=== PATIENT | female | born 1940 | race Caucasian/White ===

== ENCOUNTER 2022-09-28 16:44 | Emergency (ER) | payer OTHER, MEDICARE ==
--- OUTSIDE RECORDS SUMMARY | 2022-09-28 16:48 | XMS REPORT | Continuity of Care Document ---
:1940 Author Organization [facility] t Address [address] [place] [address] Care Team Providers Name Role Phone Tequila Pierre Primary Care Physician [phone] CRISTY CUELLO Attending Clinician Unavailable Pob, [facility] Main Attending Clinician Unavailable Doctor Unassigned, [place] Attending Clinician Unavailable Neelam Velarde Attending Clinician Unavailable Lissa Oakley Attending Clinician Radiology Attending Clinician Unavailable CRISTY CUELLO Admitting Clinician Unavailable Neelam Velarde Admitting Clinician Unavailable Payers Payer Name Policy Type Policy Number Effective Date Expiration Date S cecilia MEDICARE PART A \T\ [id number] 2007 B 00:00:00 [facility] [id number] 2015 MEDICARE SUPPLEMENT 00:00:00 Problems Condition Condition Condition Status Onset Resolution Last Treating Co mments Source Name Details Category Date Date Treatment Clinician Date Dyslipidem Dyslipidem Disease Active U nivers ia ia 2-09 ity of 00:00: [place] [address] Medical Branch Atypical Atypical Disease Active Unive rs chest pain chest pain 2-08 it y of 00:00: [place] 00 [facility] [place] Allergies, Adverse Reactions, Alerts Allergy Allergy Status Severity Reaction(s) Onset Inactive Treating Comm ents Source Name Type Date Date Clinician ran RODRIGUEZ Active U UNKNOWN 2015- [facility] 12-27 [place] [facility] NO KNOWN Drug Active Univers ALLERGIE Class ity of S [facility] Social History Social Habit Start Date Stop Date Quantity Comments Source History of Current smoker University of tobacco use [place] [facility] History SDOH University o f Alcohol Frequency [place] [facility] History SDOH University o f Alcohol Std [place] [facility] Drinks Branch History SDOH University o f Alcohol Binge [place] [facility] Exposure to 2022-08-19 2022-08-29 Not sure University of SARS-CoV-2 00:00:00 16:15:00 [place] [facility] (event) Branch Alcohol intake 2022-08-17 2022-08-17 Current University of 00:00:00 00:00:00 non-drinker of [facility] alcohol (finding) Branch Tobacco use and 2022-05-18 2022-05-18 Smokeless tobacco Un iversity of exposure 00:00:00 00:00:00 non-user [facility] Alcohol Comment 2018-10-17 2018-10-17 social drinker Unive rsity of 00:00:00 00:00:00 [facility] Sex Ass[birth year] Universit y of 00:00:00 00:00:00 [facility] Smoking Status Start Date Stop Date Source Ex-smoker 2022-05-18 00:00:00 2022-05-18 00:00:00 Universi ty of [facility] Medications Ordered Filled Start Stop Current Ordering Indication Dosage Frequency Signature Comments Components Source Medication Medication Date Date Medication? Clinician (SIG) Name Name Nitrofurant 2021-09- Yes [id number] 100mg Take 1 Univers oin&Nit. 1-23 11-29 capsule by ity of [place] 00:00: 05:59 mouth [place] (MACROBID[place] 00 :00 the Medical 100 mg morning Branch capsule and 1 capsule in the evening. Do all this for 5 days. Nitrofurant 2021-09- No [id number] 100mg Take 1 Univers oin&Nit. 0-07 10-13 capsule by ity of [place] 00:00: 04:59 [place] (MACROBID[place] 00 :00 the Medical 100 mg morning Branch capsule and 1 capsule in the evening. Do all this for 5 days. Nitrofurant 2021-09- No [id number] 100mg Take 1 Univers oin&Nit. 0-07 10-13 capsule by ity of [place] 00:00: 04:59 mouth [place] (MACROBID[place] 00 :00 the Medical 100 mg morning Branch capsule and 1 capsule in the evening. Do all this for 5 days. phenazopyri 0 Yes [id number] 100mg Take 1 Univers dine 5-24 tablet by ity of ([place]ID[place] (two) Medical tablet times Branch daily as needed for Other (bladder spasms/dys uria). phenazopyri 0 Yes [id number] 100mg Take 1 Univers dine 5-24 tablet by ity of (PYRIDIUM) 00:00: [place] 00 (two) Medical tablet times Branch daily as needed for Other (bladder spasms/dys uria). phenazopyri 0 Yes [id number] 100mg Take 1 Univers dine 5-24 tablet by ity of (PYRIDIUM) 00:00: [place] 00 (two) Medical tablet times Branch daily as needed for Other (bladder spasms/dys uria). phenazopyri 2021-0 Yes [id number] 100mg Take 1 Univers dine 5-24 tablet by ity of (PYRIDIUM) 00:00: [place] 00 (two) Medical tablet times Branch daily as needed for Other (bladder spasms/dys uria). phenazopyri 2021-0 Yes [id number] 100mg Take 1 Univers dine 5-24 tablet by ity of (PYRIDIUM) 00:00: mouth [place] 00 (two) Medical tablet times Branch daily as needed for Other (bladder spasms/dys uria). phenazopyri Yes [id number] 100mg Take 1 Univers dine 5-24 tablet by ity of (PYRIDIUM) 00:00: mouth [place] 00 (two) Medical tablet times Branch daily as needed for Other (bladder spasms/dys uria). phenazopyri 0 Yes [id number] 100mg Take 1 Univers dine 5-24 tablet by ity of (PYRIDIUM) 00:00: mouth [place] 00 (two) Medical tablet times Branch daily as needed for Other (bladder spasms/dys uria). phenazopyri 0 Yes [id number] 100mg Take 1 Univers dine 5-24 tablet by ity of (PYRIDIUM) 00:00: mouth [place] 00 (two) Medical tablet times Branch daily as needed for Other (bladder spasms/dys uria). phenazopyri 0 Yes [id number] 100mg Take 1 Univers dine 5-24 tablet by ity of (PYRIDIUM) 00:00: mouth [place] 00 (two) Medical tablet times Branch daily as needed for Other (bladder spasms/dys uria). phenazopyri 0 Yes [id number] 100mg Take 1 Univers dine 5-24 tablet by ity of (PYRIDIUM) 00:00: mouth [place] 00 (two) Medical tablet times Branch daily as needed for Other (bladder spasms/dys uria). phenazopyri 0 Yes [id number] 100mg Take 1 Univers dine 5-24 tablet by ity of (PYRIDIUM) 00:00: mouth [place] 00 (two) Medical tablet times Branch daily as needed for Other (bladder spasms/dys uria). phenazopyri 0 Yes [id number] 100mg Take 1 Univers dine 5-24 tablet by ity of (PYRIDIUM) 00:00: mouth [place] 00 (two) Medical tablet times Branch daily as needed for Other (bladder spasms/dys uria). phenazopyri 0 Yes [id number] 100mg Take 1 Univers dine 5-24 tablet by ity of (PYRIDIUM) 00:00: mouth 2 [place] 00 (two) Medical tablet times Branch daily as needed for Other (bladder spasms/dys uria). phenazopyri 0 Yes [id number] 100mg Take 1 Univers dine 5-24 tablet by ity of (PYRIDIUM) 00:00: mouth [place] 00 (two) Medical tablet times Branch daily as needed for Other (bladder spasms/dys uria). phenazopyri Yes [id number] 100mg Take 1 Univers dine 5-24 tablet by ity of (PYRIDIUM) 00:00: mouth [place] 00 (two) Medical tablet times Branch daily as needed for Other (bladder spasms/dys uria). phenazopyri Yes [id number] 100mg Take 1 Univers dine 5-24 tablet by ity of (PYRIDIUM) 00:00: mouth 2 [place] 00 (two) Medical tablet times Branch daily as needed for Other (bladder spasms/dys uria). phenazopyri Yes [id number] 100mg Take 1 Univers dine 5-24 tablet by ity of (PYRIDIUM) 00:00: mouth 2 [place] mg 00 (two) Medical tablet times Branch daily as needed for Other (bladder spasms/dys uria). phenazopyri Yes [id number] 100mg Take 1 Univers dine 5-24 tablet by ity of (PYRIDIUM) 00:00: mouth 2 [place] mg 00 (two) Medical tablet times Branch daily as needed for Other (bladder spasms/dys uria). phenazopyri Yes [id number] 100mg Take 1 Univers dine 5-24 tablet by ity of (PYRIDIUM) 00:00: mouth 2 [place] 00 (two) Medical tablet times Branch daily as needed for Other (bladder spasms/dys uria). estradioL Yes [id number] Apply 1g Univers (ESTRACE) 5-23 vaginally ity o f 0.01 % (0.1 00:00: at bedtime [place] mg/gram) 00 3 times Medical vaginal per week Branch cream (/) estradioL Yes [id number] Apply 1g Univers (ESTRACE) 5-23 vaginally ity o f 0.01 % (0.1 00:00: at bedtime [place] mg/gram) 00 3 times Medical vaginal per week Branch cream ( ida) estradioL 2021-0 Yes [id number] Apply 1g Univers (ESTRACE) 5-23 vaginally ity o f 0.01 % (0.1 00:00: at bedtime [place] mg/gram) 00 3 times Medical vaginal per week Branch cream ( ida) estradioL 2021-0 Yes [id number] Apply 1g Univers (ESTRACE) 5-23 vaginally ity o f 0.01 % (0.1 00:00: at bedtime [place] mg/gram) 00 3 times Medical vaginal per week Branch cream ( dn iday) estradioL 2021-0 Yes [id number] Apply 1g Univers (ESTRACE) 5-23 vaginally ity o f 0.01 % (0.1 00:00: at bedtime [place] mg/gram) 00 3 times Medical vaginal per week Branch cream ( ida) estradioL 2021-0 Yes [id number] Apply 1g Univers (ESTRACE) 5-23 vaginally ity o f 0.01 % (0.1 00:00: at bedtime [place] mg/gram) 00 3 times Medical vaginal per week Branch cream ( dn ida) estradioL 2021-0 Yes [id number] Apply 1g Univers (ESTRACE) 5-23 vaginally ity o f 0.01 % (0.1 00:00: at bedtime [place] mg/gram) 00 3 times Medical vaginal per week Branch cream ( ida) estradioL 2021-0 Yes [id number] Apply 1g Univers (ESTRACE) 5-23 vaginally ity o f 0.01 % (0.1 00:00: at bedtime [place] mg/gram) 00 3 times Medical vaginal per week Branch cream ( dn iday) estradioL 2021-0 Yes [id number] Apply 1g Univers (ESTRACE) 5-23 vaginally ity o f 0.01 % (0.1 00:00: at bedtime [place] mg/gram) 00 3 times Medical vaginal per week Branch cream ( dn ida) estradioL 2021-0 Yes [id number] Apply 1g Univers (ESTRACE) 5-23 vaginally ity o f 0.01 % (0.1 00:00: at bedtime [place] mg/gram) 00 3 times Medical vaginal per week Branch cream () estradioL Yes [id number] Apply 1g Univers (ESTRACE) 5-23 vaginally ity o f 0.01 % (0.1 00:00: at bedtime [place] mg/gram) 00 3 times Medical vaginal per week Branch cream ( ida) estradioL 0 Yes [id number] Apply 1g Univers (ESTRACE) 5-23 vaginally ity o f 0.01 % (0.1 00:00: at bedtime [place] mg/gram) 00 3 times Medical vaginal per week Branch cream () estradioL Yes [id number] Apply 1g Univers (ESTRACE) 5-23 vaginally ity o f 0.01 % (0.1 00:00: at bedtime [place] mg/gram) 00 3 times Medical vaginal per week Branch cream ( ida) estradioL Yes [id number] Apply 1g Univers (ESTRACE) 5-23 vaginally ity o f 0.01 % (0.1 00:00: at bedtime [place] mg/gram) 00 3 times Medical vaginal per week Branch cream ( ida) estradioL 0 Yes [id number] Apply 1g Univers (ESTRACE) 5-23 vaginally ity o f 0.01 % (0.1 00:00: at bedtime [place] mg/gram) 00 3 times Medical vaginal per week Branch cream ( ida) estradioL 0 Yes [id number] Apply 1g Univers (ESTRACE) 5-23 vaginally ity o f 0.01 % (0.1 00:00: at bedtime [place] mg/gram) 00 3 times Medical vaginal per week Branch cream ( ida) estradioL Yes [id number] Apply 1g Univers (ESTRACE) 5-23 vaginally ity o f 0.01 % (0.1 00:00: at bedtime [place] mg/gram) 00 3 times Medical vaginal per week Branch cream ( dn/ iday) estradioL 2021-0 Yes [id number] Apply 1g Univers (ESTRACE) 5-23 vaginally ity o f 0.01 % (0.1 00:00: at bedtime [place] mg/gram) 00 3 times Medical vaginal per week Branch cream ( dn/ iday) estradioL 2021-0 Yes [id number] Apply 1g Univers (ESTRACE) 5-23 vaginally ity o f 0.01 % (0.1 00:00: at bedtime [place] mg/gram) 00 3 times Medical vaginal per week Branch cream ( dn/ iday) atorvastati Yes 20mg Take 20 mg Univers n 20 mg 4-22 by mouth ity of tablet 13:45: at [place] [address] bedtime. Medical Branch atorvastati Yes 20mg Take 20 mg Univers n 20 mg 4-22 by mouth ity of tablet 13:45: at [place] [address] bedtime. Medical Branch atorvastati 0 Yes 20mg Take 20 mg Univers n 20 mg 4-22 by mouth ity of tablet 13:45: at [place] [address] bedtime. Medical Branch atorvastati 0 Yes 20mg Take 20 mg Univers n 20 mg 4-22 by mouth ity of tablet 13:45: at [place] [address] bedtime. Medical Branch atorvastati Yes 20mg Take 20 mg Univers n 20 mg 4-22 by mouth ity of tablet 13:45: at [place] [address] bedtime. Medical Branch atorvastati 0 Yes 20mg Take 20 mg Univers n 20 mg 4-22 by mouth ity of tablet 13:45: at [place] [address] bedtime. Medical Branch atorvastati 0 Yes 20mg Take 20 mg Univers n 20 mg 4-22 by mouth ity of tablet 13:45: at [place] [address] bedtime. Medical Branch atorvastati 0 Yes 20mg Take 20 mg Univers n 20 mg 4-22 by mouth ity of tablet 13:45: at [place] [address] bedtime. Medical Branch atorvastati 0 Yes 20mg Take 20 mg Univers n 20 mg 4-22 by mouth ity of tablet 13:45: at [place] [address] bedtime. Medical Branch atorvastati 2022-0 Yes 20mg Take 20 mg Univers n 20 mg 4-22 by mouth ity of tablet 13:45: at [place] [address] bedtime. Medical Branch atorvastati 2021-0 Yes 20mg Take 20 mg Univers n 20 mg 4-22 by mouth ity of tablet 13:45: at [place] [address] bedtime. Medical Branch atorvastati 2021-0 Yes 20mg Take 20 mg Univers n 20 mg 4-22 by mouth ity of tablet 13:45: at [place] [address] bedtime. Medical Branch atorvastati 2021-0 Yes 20mg Take 20 mg Univers n 20 mg 4-22 by mouth ity of tablet 13:45: at [place] [address] bedtime. Medical Branch atorvastati 2021-0 Yes 20mg Take 20 mg Univers n 20 mg 4-22 by mouth ity of tablet 13:45: at [place] [address] bedtime. Medical Branch atorvastati 2021-0 Yes 20mg Take 20 mg Univers n 20 mg 4-22 by mouth ity of tablet 13:45: at [place] [address] bedtime. Medical Branch atorvastati 2021-0 Yes 20mg Take 20 mg Univers n 20 mg 4-22 by mouth ity of tablet 13:45: at [place] [address] bedtime. Medical Branch atorvastati 2021-0 Yes 20mg Take 20 mg Univers n 20 mg 4-22 by mouth ity of tablet 13:45: at [place] [address] bedtime. Medical Branch atorvastati 2021-0 Yes 20mg Take 20 mg Univers n 20 mg 4-22 by mouth ity of tablet 13:45: at [place] [address] bedtime. Medical Branch atorvastati 2021-0 Yes 20mg Take 20 mg Univers n 20 mg 4-22 by mouth ity of tablet 13:45: at [place] [address] bedtime. Medical Branch lisinopriL 2021-0 Yes Univers 5 mg tablet 4-13 ity of 00:00: [place] 00 Medical Branch lisinopriL 2021-0 Yes Univers 5 mg tablet 4-13 ity of 00:00: [place] 00 Medical Branch lisinopriL 2021-0 Yes Univers 5 mg tablet 4-13 ity of 00:00: [place] 00 Medical Branch lisinopriL 2021-0 Yes Univers 5 mg tablet 4-13 ity of 00:00: [place] 00 Medical Branch lisinopriL 2022-0 Yes Univers 5 mg tablet 4-13 ity of 00:00: [place] 00 Medical Branch lisinopriL 2021-0 Yes Univers 5 mg tablet 4-13 ity of 00:00: [place] Medical Branch lisinopriL 2021-0 Yes Univers 5 mg tablet 4-13 ity of 00:00: [place] [facility] Branch lisinopriL 202-0 Yes Univers 5 mg tablet 4-13 ity of 00:00: [place] Medical Branch lisinopriL 2021-0 Yes Univers 5 mg tablet 4-13 ity of 00:00: [place] [facility] Branch lisinopriL 2021-0 Yes Univers 5 mg tablet 4-13 ity of 00:00: [place] [facility] Branch lisinopriL 2021-0 Yes Univers 5 mg tablet 4-13 ity of 00:00: [place] [facility] Branch lisinopriL 2021-0 Yes Univers 5 mg tablet 4-13 ity of 00:00: [place] [facility] lisinopriL 2021-0 Yes Univers 5 mg tablet 4-13 ity of 00:00: [place] [facility] Branch lisinopriL 2021-0 Yes Univers 5 mg tablet 4-13 ity of 00:00: [place] [facility] Branch lisinopriL 2021-0 Yes Univers 5 mg tablet 4-13 ity of 00:00: [place] 00 Medical Branch lisinopriL 2021-0 Yes Univers 5 mg tablet 4-13 ity of 00:00: [place] 00 Medical Branch lisinopriL 202-0 Yes Univers 5 mg tablet 4-13 ity of 00:00: [place] Medical Branch lisinopriL 2021-0 Yes Univers 5 mg tablet 4-13 ity of 00:00: [place] 00 Medical Branch lisinopriL 202-0 Yes Univers 5 mg tablet 4-13 ity of 00:00: [place] 00 Medical Branch cefpodoxime 2019-0 Yes [id number] 100mg Take 1 Univers 100 mg 7-28 tablet by ity of tablet 00:00: mouth 2 [place] [address] (two) Medical times Branch daily. ondansetron 2019-0 Yes [id number] 4mg Take 1 Univers (ZOFRAN 7-28 tablet by ity of ODT) 4 mg 00:00: mouth [place] disintegrat 00 every 8 Medic al ing tablet (eight) Branch hours as needed for Nausea and Vomiting (N/V). butalbital- 2020-0 Yes [id number] 1{tbl} Take 1 Univers acetaminoph 7-28 tablet by ity of en-caff 00:00: mouth [place] 50-325-40 00 every 6 Medical mg tablet (six) Branch hours as needed for Pain (scale 4-6). cefpodoxime 2020-0 Yes [id number] 100mg Take 1 Univers 100 mg 7-28 tablet by ity of tablet 00:00: mouth 2 [place] 00 (two) Medical times Branch daily. ondansetron 2020-0 Yes [id number] 4mg Take 1 Univers (ZOFRAN 7-28 tablet by ity of ODT) 4 mg 00:00: mouth [place] disintegrat 00 every 8 Medic al ing tablet (eight) Branch hours as needed for Nausea and Vomiting (N/V). butalbital- 2020-0 Yes [id number] 1{tbl} Take 1 Univers acetaminoph 7-28 tablet by ity of en-caff 00:00: mouth [place] 50-325-40 00 every 6 Medical mg tablet (six) Branch hours as needed for Pain (scale 4-6). cefpodoxime 2020-0 Yes [id number] 100mg Take 1 Univers 100 mg 7-28 tablet by ity of tablet 00:00: mouth 2 [place] 00 (two) Medical times Branch daily. ondansetron 2020-0 Yes [id number] 4mg Take 1 Univers (ZOFRAN 7-28 tablet by ity of ODT) 4 mg 00:00: mouth [place] disintegrat 00 every 8 Medic al ing tablet (eight) Branch hours as needed for Nausea and Vomiting (N/V). butalbital- 2020-0 Yes [id number] 1{tbl} Take 1 Univers acetaminoph 7-28 tablet by ity of en-caff 00:00: mouth [place] 50-325-40 00 every 6 Medical mg tablet (six) Branch hours as needed for Pain (scale 4-6). cefpodoxime 2020-0 Yes [id number] 100mg Take 1 Univers 100 mg 7-28 tablet by ity of tablet 00:00: mouth 2 [place] 00 (two) Medical times Branch daily. ondansetron 2020-0 Yes [id number] 4mg Take 1 Univers (ZOFRAN 7-28 tablet by ity of ODT) 4 mg 00:00: mouth [place] disintegrat 00 every 8 Medic al ing tablet (eight) Branch hours as needed for Nausea and Vomiting (N/V). butalbital- 2020-0 Yes [id number] 1{tbl} Take 1 Univers acetaminoph 7-28 tablet by ity of en-caff 00:00: mouth [place] 50-325-40 00 every 6 Medical mg tablet (six) Branch hours as needed for Pain (scale 4-6). cefpodoxime 2020-0 Yes [id number] 100mg Take 1 Univers 100 mg 7-28 tablet by ity of tablet 00:00: mouth 2 [place] 00 (two) Medical times Branch daily. ondansetron 2020-0 Yes [id number] 4mg Take 1 Univers (ZOFRAN 7-28 tablet by ity of ODT) 4 mg 00:00: mouth [place] disintegrat 00 every 8 Medic al ing tablet (eight) Branch hours as needed for Nausea and Vomiting (N/V). butalbital- 2020-0 Yes [id number] 1{tbl} Take 1 Univers acetaminoph 7-28 tablet by ity of en-caff 00:00: mouth [place] 50-325-40 00 every 6 Medical mg tablet (six) Branch hours as needed for Pain (scale 4-6). cefpodoxime 2020-0 Yes [id number] 100mg Take 1 Univers 100 mg 7-28 tablet by ity of tablet 00:00: mouth 2 [place] 00 (two) Medical times Branch daily. ondansetron 2020-0 Yes [id number] 4mg Take 1 Univers (ZOFRAN 7-28 tablet by ity of ODT) 4 mg 00:00: mouth [place] disintegrat 00 every 8 Medic al ing tablet (eight) Branch hours as needed for Nausea and Vomiting (N/V). butalbital- 2020-0 Yes [id number] 1{tbl} Take 1 Univers acetaminoph 7-28 tablet by ity of en-caff 00:00: mouth [place] 50-325-40 00 every 6 Medical mg tablet (six) Branch hours as needed for Pain (scale 4-6). cefpodoxime 2020-0 Yes [id number] 100mg Take 1 Univers 100 mg 7-28 tablet by ity of tablet 00:00: mouth 2 [place] 00 (two) Medical times Branch daily. ondansetron 2020-0 Yes [id number] 4mg Take 1 Univers (ZOFRAN 7-28 tablet by ity of ODT) 4 mg 00:00: mouth [place] disintegrat 00 every 8 Medic al ing tablet (eight) Branch hours as needed for Nausea and Vomiting (N/V). butalbital- 2020-0 Yes [id number] 1{tbl} Take 1 Univers acetaminoph 7-28 tablet by ity of en-caff 00:00: mouth [place] 50-325-40 00 every 6 Medical mg tablet (six) Branch hours as needed for Pain (scale 4-6). cefpodoxime 2020-0 Yes [id number] 100mg Take 1 Univers 100 mg 7-28 tablet by ity of tablet 00:00: mouth 2 [place] 00 (two) Medical times Branch daily. ondansetron 2020-0 Yes [id number] 4mg Take 1 Univers (ZOFRAN 7-28 tablet by ity of ODT) 4 mg 00:00: mouth [place] disintegrat 00 every 8 Medic al ing tablet (eight) Branch hours as needed for Nausea and Vomiting (N/V). butalbital- 2020-0 Yes [id number] 1{tbl} Take 1 Univers acetaminoph 7-28 tablet by ity of en-caff 00:00: mouth [place] 50-325-40 00 every 6 Medical mg tablet (six) Branch hours as needed for Pain (scale 4-6). cefpodoxime 2020-0 Yes [id number] 100mg Take 1 Univers 100 mg 7-28 tablet by ity of tablet 00:00: mouth 2 [place] 00 (two) Medical times Branch daily. ondansetron 2020-0 Yes [id number] 4mg Take 1 Univers (ZOFRAN 7-28 tablet by ity of ODT) 4 mg 00:00: mouth [place] disintegrat 00 every 8 Medic al ing tablet (eight) Branch hours as needed for Nausea and Vomiting (N/V). butalbital- 2020-0 Yes [id number] 1{tbl} Take 1 Univers acetaminoph 7-28 tablet by ity of en-caff 00:00: mouth [place] 50-325-40 00 every 6 Medical mg tablet (six) Branch hours as needed for Pain (scale 4-6). cefpodoxime 2020-0 Yes [id number] 100mg Take 1 Univers 100 mg 7-28 tablet by ity of tablet 00:00: mouth 2 [place] 00 (two) Medical times Branch daily. ondansetron 2020-0 Yes [id number] 4mg Take 1 Univers (ZOFRAN 7-28 tablet by ity of ODT) 4 mg 00:00: mouth [place] disintegrat 00 every 8 Medic al ing tablet (eight) Branch hours as needed for Nausea and Vomiting (N/V). butalbital- 2020-0 Yes [id number] 1{tbl} Take 1 Univers acetaminoph 7-28 tablet by ity of en-caff 00:00: mouth [place] 50-325-40 00 every 6 Medical mg tablet (six) Branch hours as needed for Pain (scale 4-6). cefpodoxime 2020-0 Yes [id number] 100mg Take 1 Univers 100 mg 7-28 tablet by ity of tablet 00:00: mouth 2 [place] 00 (two) Medical times Branch daily. ondansetron 2020-0 Yes [id number] 4mg Take 1 Univers (ZOFRAN 7-28 tablet by ity of ODT) 4 mg 00:00: mouth [place] disintegrat 00 every 8 Medic al ing tablet (eight) Branch hours as needed for Nausea and Vomiting (N/V). butalbital- 2020-0 Yes [id number] 1{tbl} Take 1 Univers acetaminoph 7-28 tablet by ity of en-caff 00:00: mouth [place] 50-325-40 00 every 6 Medical mg tablet (six) Branch hours as needed for Pain (scale 4-6). cefpodoxime 2020-0 Yes [id number] 100mg Take 1 Univers 100 mg 7-28 tablet by ity of tablet 00:00: mouth 2 [place] 00 (two) Medical times Branch daily. ondansetron 2020-0 Yes [id number] 4mg Take 1 Univers (ZOFRAN 7-28 tablet by ity of ODT) 4 mg 00:00: mouth [place] disintegrat 00 every 8 Medic al ing tablet (eight) Branch hours as needed for Nausea and Vomiting (N/V). butalbital- 2020-0 Yes [id number] 1{tbl} Take 1 Univers acetaminoph 7-28 tablet by ity of en-caff 00:00: mouth [place] 50-325-40 00 every 6 Medical mg tablet (six) Branch hours as needed for Pain (scale 4-6). cefpodoxime 2020-0 Yes [id number] 100mg Take 1 Univers 100 mg 7-28 tablet by ity of tablet 00:00: mouth 2 [place] 00 (two) Medical times Branch daily. ondansetron 2020-0 Yes [id number] 4mg Take 1 Univers (ZOFRAN 7-28 tablet by ity of ODT) 4 mg 00:00: mouth [place] disintegrat 00 every 8 Medic al ing tablet (eight) Branch hours as needed for Nausea and Vomiting (N/V). butalbital- 2020-0 Yes [id number] 1{tbl} Take 1 Univers acetaminoph 7-28 tablet by ity of en-caff 00:00: mouth [place] 50-325-40 00 every 6 Medical mg tablet (six) Branch hours as needed for Pain (scale 4-6). cefpodoxime 2020-0 Yes [id number] 100mg Take 1 Univers 100 mg 7-28 tablet by ity of tablet 00:00: mouth 2 [place] 00 (two) Medical times Branch daily. ondansetron 2020-0 Yes [id number] 4mg Take 1 Univers (ZOFRAN 7-28 tablet by ity of ODT) 4 mg 00:00: mouth [place] disintegrat 00 every 8 Medic al ing tablet (eight) Branch hours as needed for Nausea and Vomiting (N/V). butalbital- 2020-0 Yes [id number] 1{tbl} Take 1 Univers acetaminoph 7-28 tablet by ity of en-caff 00:00: mouth [place] 50-325-40 00 every 6 Medical mg tablet (six) Branch hours as needed for Pain (scale 4-6). cefpodoxime 2020-0 Yes [id number] 100mg Take 1 Univers 100 mg 7-28 tablet by ity of tablet 00:00: mouth 2 [place] 00 (two) Medical times Branch daily. ondansetron 2020-0 Yes [id number] 4mg Take 1 Univers (ZOFRAN 7-28 tablet by ity of ODT) 4 mg 00:00: mouth [place] disintegrat 00 every 8 Medic al ing tablet (eight) Branch hours as needed for Nausea and Vomiting (N/V). butalbital- 2020-0 Yes [id number] 1{tbl} Take 1 Univers acetaminoph 7-28 tablet by ity of en-caff 00:00: mouth [place] 50-325-40 00 every 6 Medical mg tablet (six) Branch hours as needed for Pain (scale 4-6). cefpodoxime 2020-0 Yes [id number] 100mg Take 1 Univers 100 mg 7-28 tablet by ity of tablet 00:00: mouth 2 [place] 00 (two) Medical times Branch daily. ondansetron 2020-0 Yes [id number] 4mg Take 1 Univers (ZOFRAN 7-28 tablet by ity of ODT) 4 mg 00:00: mouth [place] disintegrat 00 every 8 Medic al ing tablet (eight) Branch hours as needed for Nausea and Vomiting (N/V). butalbital- 2020-0 Yes [id number] 1{tbl} Take 1 Univers acetaminoph 7-28 tablet by ity of en-caff 00:00: mouth [place] 50-325-40 00 every 6 Medical mg tablet (six) Branch hours as needed for Pain (scale 4-6). cefpodoxime 2020-0 Yes [id number] 100mg Take 1 [facility] 100 mg 7-28 tablet by ity of tablet 00:00: mouth 2 [place] 00 (two) Medical times Branch daily. ondansetron 2020-0 Yes [id number] 4mg Take 1 Univers (ZOFRAN 7-28 tablet by ity of ODT) 4 mg 00:00: mouth [place] disintegrat 00 every 8 Medic al ing tablet (eight) Branch hours as needed for Nausea and Vomiting (N/V). butalbital- 2020-0 Yes [id number] 1{tbl} Take 1 [facility] acetaminoph 7-28 tablet by ity of en-caff 00:00: mouth [place] 50-325-40 00 every 6 Medical mg tablet (six) Branch hours as needed for Pain (scale 4-6). cefpodoxime 2020-0 Yes [id number] 100mg Take 1 [facility] 100 mg 7-28 tablet by ity of tablet 00:00: mouth 2 [place] 00 (two) Medical times Branch daily. ondansetron 2020-0 Yes [id number] 4mg Take 1 [facility] (ZOFRAN 7-28 tablet by ity of ODT) 4 mg 00:00: mouth [place] disintegrat 00 every 8 Medic al ing tablet (eight) Branch hours as needed for Nausea and Vomiting (N/V). butalbital- 2020-0 Yes [id number] 1{tbl} Take 1 [facility] acetaminoph 7-28 tablet by ity of en-caff 00:00: mouth [place] 50-325-40 00 every 6 Medical mg tablet (six) Branch hours as needed for Pain (scale 4-6). cefpodoxime 2020-0 Yes [id number] 100mg Take 1 [facility] 100 mg 7-28 tablet by ity of tablet 00:00: mouth 2 [place] 00 (two) Medical times Branch daily. ondansetron 2020-0 Yes [id number] 4mg Take 1 [facility] (ZOFRAN 7-28 tablet by ity of ODT) 4 mg 00:00: mouth [place] disintegrat 00 every 8 Medic al ing tablet (eight) Branch hours as needed for Nausea and Vomiting (N/V). butalbital- 2020-0 Yes [id number] 1{tbl} Take 1 [facility] acetaminoph 7-28 tablet by ity of en-caff 00:00: mouth [place] 50-325-40 00 every 6 Medical mg tablet (six) Branch hours as needed for Pain (scale 4-6). alum-mag Yes [id number] 30mL Take 30 mL [facility] hydroxide-s 2-09 by mouth 3 it y of imeth 00:00: (three) [place] times Medical mg/5 mL daily as Branch suspension needed for Indigestio n, Heartburn or Gas. traMADOL 50 Yes [id number] 50mg Take 1 [facility] mg tablet 2-09 tablet by ity o f 00:00: mouth 2 [place] 00 (two) Medical times Branch daily as needed for Pain (scale 4-6) or Pain (scale 7-10). alum-mag Yes [id number] 30mL Take 30 mL [facility] hydroxide-s 2-09 by mouth 3 it y of imeth 00:00: (three) [place] times Medical mg/5 mL daily as Branch suspension needed for Indigestio n, Heartburn or Gas. traMADOL 50 Yes [id number] 50mg Take 1 [facility] mg tablet 2-09 tablet by ity o f 00:00: mouth 2 00 (two) Medical times Branch daily as needed for Pain (scale 4-6) or Pain (scale 7-10). alum-mag Yes [id number] 30mL Take 30 mL [facility] hydroxide-s 2-09 by mouth 3 it y of imeth 00:00: (three) [place] times Medical mg/5 mL daily as Branch suspension needed for Indigestio n, Heartburn or Gas. traMADOL 50 Yes [id number] 50mg Take 1 [facility] mg tablet 2-09 tablet by ity o f 00:00: mouth 2 00 (two) Medical times Branch daily as needed for Pain (scale 4-6) or Pain (scale 7-10). alum-mag Yes [id number] 30mL Take 30 mL [facility] hydroxide-s 2-09 by mouth 3 it y of imeth 00:00: (three) [place] 200-20020 00 times Medical mg/5 mL daily as Branch suspension needed for Indigestio n, Heartburn or Gas. traMADOL 50 Yes [id number] 50mg Take 1 [facility] mg tablet 2-09 tablet by ity o f 00:00: mouth 2 00 (two) Medical times Branch daily as needed for Pain (scale 4-6) or Pain (scale 7-10). alum-mag Yes [id number] 30mL Take 30 mL [facility] hydroxide-s 2-09 by mouth 3 it y of imeth 00:00: (three) [place] times Medical mg/5 mL daily as Branch suspension needed for Indigestio n, Heartburn or Gas. traMADOL 50 Yes [id number] 50mg Take 1 [facility] mg tablet 2-09 tablet by ity o f 00:00: mouth 2 00 (two) Medical times Branch daily as needed for Pain (scale 4-6) or Pain (scale 7-10). alum-mag Yes [id number] 30mL Take 30 mL [facility] hydroxide-s 2-09 by mouth 3 it y of imeth 00:00: (three) [place] times Medical mg/5 mL daily as Branch suspension needed for Indigestio n, Heartburn or Gas. traMADOL 50 Yes [id number] 50mg Take 1 [facility] mg tablet 2-09 tablet by ity o f 00:00: mouth 2 (two) Medical times Branch daily as needed for Pain (scale 4-6) or Pain (scale 7-10). alum-mag Yes [id number] 30mL Take 30 mL [facility] hydroxide-s 2-09 by mouth 3 it y of imeth 00:00: (three) times Medical mg/5 mL daily as Branch suspension needed for Indigestio n, Heartburn or Gas. traMADOL 50 Yes [id number] 50mg Take 1 [facility] mg tablet 2-09 tablet by ity o f 00:00: mouth 2 (two) Medical times Branch daily as needed for Pain (scale 4-6) or Pain (scale 7-10). alum-mag Yes [id number] 30mL Take 30 mL [facility] hydroxide-s 2-09 by mouth 3 it y of imeth 00:00: (three) 200-200 00 times Medical mg/5 mL daily as Branch suspension needed for Indigestio n, Heartburn or Gas. traMADOL 50 Yes [id number] 50mg Take 1 [facility] mg tablet 2-09 tablet by ity o f 00:00: mouth 2 00 (two) Medical times Branch daily as needed for Pain (scale 4-6) or Pain (scale 7-10). alum-mag Yes [id number] 30mL Take 30 mL [facility] hydroxide-s 2-09 by mouth 3 it y of imeth 00:00: (three) 200-200 00 times Medical mg/5 mL daily as Branch suspension needed for Indigestio n, Heartburn or Gas. traMADOL 50 Yes [id number] 50mg Take 1 [facility] mg tablet 2-09 tablet by ity o f 00:00: mouth 2 00 (two) Medical times Branch daily as needed for Pain (scale 4-6) or Pain (scale 7-10). alum-mag Yes [id number] 30mL Take 30 mL [facility] hydroxide-s 2-09 by mouth 3 it y of imeth 00:00: (three) 200-20020 00 times Medical mg/5 mL daily as Branch suspension needed for Indigestio n, Heartburn or Gas. traMADOL 50 Yes [id number] 50mg Take 1 [facility] mg tablet 2-09 tablet by ity o f 00:00: mouth 2 00 (two) Medical times Branch daily as needed for Pain (scale 4-6) or Pain (scale 7-10). alum-mag Yes [id number] 30mL Take 30 mL [facility] hydroxide-s 2-09 by mouth 3 it y of imeth 00:00: (three) 200-200 00 times Medical mg/5 mL daily as Branch suspension needed for Indigestio n, Heartburn or Gas. traMADOL 50 Yes [id number] 50mg Take 1 [facility] mg tablet 2-09 tablet by ity o f 00:00: mouth 2 (two) Medical times Branch daily as needed for Pain (scale 4-6) or Pain (scale 7-10). alum-mag Yes [id number] 30mL Take 30 mL [facility] hydroxide-s 2-09 by mouth 3 it y of imeth 00:00: (three) 200 00 times Medical mg/5 mL daily as Branch suspension needed for Indigestio n, Heartburn or Gas. traMADOL 50 Yes [id number] 50mg Take 1 [facility] mg tablet 2-09 tablet by ity o f 00:00: mouth 2 00 (two) Medical times Branch daily as needed for Pain (scale 4-6) or Pain (scale 7-10). alum-mag Yes [id number] 30mL Take 30 mL [facility] hydroxide-s 2-09 by mouth 3 it y of imeth 00:00: (three) 200-200 00 times Medical mg/5 mL daily as Branch suspension needed for Indigestio n, Heartburn or Gas. traMADOL 50 Yes [id number] 50mg Take 1 [facility] mg tablet 2-09 tablet by ity o f 00:00: mouth 2 00 (two) Medical times Branch daily as needed for Pain (scale 4-6) or Pain (scale 7-10). alum-mag Yes [id number] 30mL Take 30 mL [facility] hydroxide-s 2-09 by mouth 3 it y of imeth 00:00: (three) 200-200 00 times Medical mg/5 mL daily as Branch suspension needed for Indigestio n, Heartburn or Gas. traMADOL 50 Yes [id number] 50mg Take 1 [facility] mg tablet 2-09 tablet by ity o f 00:00: mouth 2 (two) Medical times Branch daily as needed for Pain (scale 4-6) or Pain (scale 7-10). alum-mag Yes [id number] 30mL Take 30 mL [facility] hydroxide-s 2-09 by mouth 3 it y of imeth 00:00: (three) times Medical mg/5 mL daily as Branch suspension needed for Indigestio n, Heartburn or Gas. traMADOL 50 Yes [id number] 50mg Take 1 [facility] mg tablet 2-09 tablet by ity o f 00:00: mouth 2 (two) Medical times Branch daily as needed for Pain (scale 4-6) or Pain (scale 7-10). alum-mag Yes [id number] 30mL Take 30 mL [facility] hydroxide-s 2-09 by mouth 3 it y of imeth 00:00: (three) 200-200 00 times Medical mg/5 mL daily as Branch suspension needed for Indigestio n, Heartburn or Gas. traMADOL 50 Yes [id number] 50mg Take 1 [facility] mg tablet 2-09 tablet by ity o f 00:00: mouth 2 (two) Medical times Branch daily as needed for Pain (scale 4-6) or Pain (scale 7-10). alum-mag Yes [id number] 30mL Take 30 mL [facility] hydroxide-s 2-09 by mouth 3 it y of imeth 00:00: (three) 200-200 00 times Medical mg/5 mL daily as Branch suspension needed for Indigestio n, Heartburn or Gas. traMADOL 50 Yes [id number] 50mg Take 1 [facility] mg tablet 2-09 tablet by ity o f 00:00: mouth 2 (two) Medical times Branch daily as needed for Pain (scale 4-6) or Pain (scale 7-10). alum-mag Yes [id number] 30mL Take 30 mL [facility] hydroxide-s 2-09 by mouth 3 it y of imeth 00:00: (three) 200-20020 00 times Medical mg/5 mL daily as Branch suspension needed for Indigestio n, Heartburn or Gas. traMADOL 50 Yes [id number] 50mg Take 1 [facility] mg tablet 2-09 tablet by ity o f 00:00: mouth 2 (two) Medical times Branch daily as needed for Pain (scale 4-6) or Pain (scale 7-10). alum-mag Yes [id number] 30mL Take 30 mL [facility] hydroxide-s 209 by mouth 3 it y of imeth 00:00: (three) [place] times Medical mg/5 mL daily as Branch suspension needed for Indigestio n, Heartburn or Gas. traMADOL 50 Yes [id number] 50mg Take 1 [facility] mg tablet 2-09 tablet by ity o f 00:00: mouth 2 (two) Medical times Branch daily as needed for Pain (scale 4-6) or Pain (scale 7-10). Vital Signs Vital Name Observation Time Observation Value Comments Source Systolic blood 2022-08-17 17:04:00 144 [facility]Hg[facility] 2022-08-17 17:04:00 78 mm[Hg] Unive [facility] Heart rate 2022-08-17 17:03:00 69 /min [facility] Body temperature 2022-08-17 17:03:00 36.61 Alix [facility] Respiratory rate 2022-08-17 17:03:00 18 /min [facility] Body height 2022-08-17 17:03:00 162.6 cm [facility] Body weight 2022-08-17 17:03:00 68.947 kg [facility] BMI 2022-08-17 17:03:00 26.09 kg/m2 [facility] Systolic blood 2022-05-18 16:01:00 132 mm[Hg] [facility] Diastolic blood 2022-05-18 16:01:00 73 mm[Hg] Unive [facility] Heart rate 2022-05-18 16:01:00 83 /min [facility] Body temperature 2022-05-18 16:01:00 36.61 Alix [facility] Respiratory rate 2022-05-18 16:01:00 18 /min [facility] Body height 2022-05-18 16:01:00 162.6 cm [facility] Body weight 2022-05-18 16:01:00 68.493 kg [facility] BMI 2022-05-18 16:01:00 25.92 kg/m2 [facility] Oxygen saturation in 2022-05-18 16:01:00 100 /min [facility] Arterial blood by [facility] Pulse oximetry Branch Procedures Procedure Date / Time Performing Clinician Source Performed POCT URINALYSIS W/O 2022-08-17 17:24:00 [facility] SPECIFIC GRAVITY Medical [place] US RETROPERITONEAL 2022-07-26 18:05:02 [facility] [place] [facility] [place] ASSIGNMENT OF BENEFITS 2022-07-26 17:13:43 [facility] [place] [facility] CONSENT/REFUSAL FOR 2022-06-13 15:53:24 Doctor Unassigned, [facility] DIAGNOSIS AND TREATMENT [place] [facility] DISCLOSURE AND CONSENT, 2022-05-18 05:01:00 [facility]GICAL [place] [facility] PROCEDURES Encounters Start End Encounter Admission Attending Care Care Encounter Source Date/Time Date/Time Type Type Clinicians Facility Department ID 2021-07-07 Emergency [facility] [id number] [facility] 2023-02-15 Outpatient R CUATE [facility] [id number] Univers 10:30:00 10:30:00 CRISTY ity [facility] 2022-09-11 2022-09-11 Telephone Cuate [facility] 1.2.840.114 [id number] Univers 00:00:00 00:00:00 Cristy SCHREIBER 350.1.13.10 i Bee 4.2.7.2.686 Douglas RAY [id number] Ga dical NAL 134 Branch BUILDING 2022-08-29 2022-08-29 Inventory Control Supervisor Mohsen, Viki Lab Main [facility] 1.2.8 40.114 [id number] Univers 16:15:00 16:30:00 Visit Cristy Cuello ABDOUL 350.1.13.10 ity [place] [id number] [address] 2022-08-29 2022-08-29 Outpatient R [facility] [id number] Univers 16:15:00 16:15:00 CRISTY ity [facility] 2022-08-29 2022-08-29 Telephone [facility] 1.2.840.114 [id number] Univers 00:00:00 00:00:00 Cristy SCHREIBER 350.1.13.10 i ty [place] [id number] [address] 2022-08-17 2022-08-17 Outpatient R [facility] [id number] Univers 10:30:00 11:39:51 CRISTY itmiriam [facility] 2022-08-17 2022-08-17 Office [facility] 1.2.840.114 [id number] Univers 10:30:00 11:39:51 Visit Cristy SCHREIBER 350.1.13.10 i ty [facility] 4.2.7.2.[place] [id number] [address] 2022-08-01 2022-08-01 Refill [facility] 1.2.840.114 [id number] Univers 00:00:00 00:00:00 Cristy [facility] 350.1.13.10 it y [place]2.[place] CE[place] [id number] [address] OFFICE BUILDING 2022-07-30 2022-07-30 Inventory Control Supervisor Mohsen, Viki Lab Main [facility] 1.2.8 40.114 [id number] Univers 16:30:00 16:45:00 Visit Cristy Cuello ABDOUL 350.1.13.10 ity of [place] 4[place]2.7.2.686 [place] [id number] [address] 2022-07-30 2022-07-30 Outpatient R [facility] [id number] Univers 16:30:00 16:30:00 CRISTY itmiriam [facility] 2022-07-30 2022-07-30 Telephone [facility] 1.2.840.114 [id number] Univers 00:00:00 00:00:00 Cristy ANGLEALIN 350.1.13.10 i ty [place] 4[place]2.7.2.[place] [id number] [address] 2022-07-26 2022-07-26 Outpatient R [facility] [id number] Univers 11:14:28 23:59:00 CRISTY itmiriam of [facility] 2022-07-26 2022-07-26 Hospital [facility] [id number] Univers 11:14:28 23:59:00 Encounter Cristy SCHREIBER 350.1.13.10 ity [place]2.[place] [id number] [facility] 806 [place] 2022-07-26 2022-07-26 Orders Doctor EDITH 1.2.840.114 [id number] Univers 00:00:00 00:00:00 Only Unassigned, FARA 350.1.13.10 ity of [place] [facility] 4.2.7.2.686 Simone as [id number] [facility] 009 [place] 2022-07-16 2022-07-16 Telephone [facility] 1.2.840.114 [id number] Univers 00:00:00 00:00:00 Cristy ANGLEALIN 350.1.13.10 i ty [place] 4[place]7.2.[place] [id number] Ga dicpa NAL [address] [place] [address] 2022-06-18 2022-06-18 Telephone [facility] 1.2.840.114 [id number] Univers 00:00:00 00:00:00 Cristy ANGLEALIN 350.1.13.10 i ty of [place] 4[place]7.2.[place] [id number] Ga dical NAL [address] [place] [address] 2022-06-15 2022-06-15 Refill [facility] 1.2.840.114 [id number] Univers 00:00:00 00:00:00 Cristy SCHREIBER 350.1.13.10 i ty [place] 4[place]2.[place] [id number] Ga dical [facility] 098 [facility] 2022-06-13 2022-06-13 Inventory Control Supervisor Mohsen, Adc Lab Main [facility] 1.2.8 40.114 [id number] Univers 11:00:00 11:15:00 Visit Cuate Cristy SCHREIBER 350.1.13.10 ity of [place] 4.2[place].2.[place] [id number] [facility] 353 [facility] 2022-06-13 2022-06-13 Outpatient R [facility] [id number] Univers 11:00:00 11:00:00 CRISTY ity of [facility] 2022-06-13 2022-06-13 Telephone [facility] 1.2.840.114 [id number] Univers 00:00:00 00:00:00 Cristy SCHREIBER 350.1.13.10 i ty of [place] 4[place] [id number] [address] 2022-06-13 2022-06-13 Orders Doctor EDITH 1.2.840.114 [id number] Univers 00:00:00 00:00:00 Only Unassigned, FARA 350.1.13.10 ity of [place] [facility] 4.2.7.2.686 Simone as [id number] [facility] 009 [place] 2022-05-31 2022-05-31 Hospital [facility] [id number] Univers 13:41:30 23:59:00 Encounter Cristy SCHREIBER 350.1.13.10 ity [place]2.[place] [id number] [facility] 806 [place] 2022-05-31 2022-05-31 Outpatient R [facility] [id number] Univers 00:00:00 23:59:00 CRISTY anderson [facility] 2022-05-18 2022-05-18 Outpatient R [facility] [id number] Univers 10:00:00 11:06:18 CRISTY anderson [facility] 2022-05-18 2022-05-18 Office [facility] 1.2.840.114 [id number] Univers 10:00:00 11:06:18 Visit Cristy SCHREIBER 350.1.13.10 i ty [place] 4[place]2.[place] [id number] Ga dicpa NAL [address] [place] [address] 2022-05-18 2022-05-18 Orders Doctor EDITH 1.2.840.114 [id number] Univers 00:00:00 00:00:00 Only Unassigned, FARA 350.1.13.10 ity of [place] [facility] 4.2.7.2.686 Simone as [id number] [address] 2022-05-02 2022-05-02 Refill [facility] 1.2.840.114 [id number] Univers 00:00:00 00:00:00 Cristy SCHREIBER 350.1.13.10 i ty [facility] 4.2.7.2.[place] [id number] Ga dicpa NAL [address] [place] [address] 2022-04-30 2022-04-30 Outpatient R [facility] [id number] Univers 10:30:00 11:28:34 CRISTY anderson [facility] 2022-04-30 2022-04-30 Office [facility] 1.2.840.114 [id number] Univers 10:30:00 11:28:34 Visit Cristy SONGALIN 350.1.13.10 i ty [place].2.[place] [id number] Ga dic[address] 2022-04-30 2022-04-30 Outpatient R [facility] [id number] Univers 10:30:00 11:28:34 CRISTY anderson [facility] 2022-04-30 2022-04-30 Outpatient R [facility] [id number] Univers 10:30:00 10:30:00 CRISTY anderson [facility] 2022-04-04 2022-04-04 Outpatient IZAIAH [facility] [id number] [facility] 12:00:00 12:00:00 Neelam Zacarias [facility] 2022-03-13 2022-03-13 Refill [facility] 1.2.840.114 [id number] Univers 00:00:00 00:00:00 Cristy NUR 350.1.13.10 it y [place]2.[place] [id number] [facility] 098 Branch OFFICE BUILDING 2022-03-09 2022-03-09 Telephone [facility] 1.2.840.114 [id number] Univers 00:00:00 00:00:00 Cristy SCHREIBER 350.1.13.10 i ty [facility] 4.2.7.2.[place] [id number] Ga dical NAL 134 [facility] 2022-03-08 2022-03-08 Inventory Control Supervisor Mohsen, Viki Lab Main [facility] 1.2.8 40.114 [id number] Univers 16:15:00 16:30:00 Visit CuateCristy 350.1.13.10 ity of [place].2.[place] [phone] Ga dical NAL 353 [facility] 2022-03-08 2022-03-08 Outpatient R [facility] [id number] Univers 16:15:00 16:15:00 CRISTY justin [facility] 2022-03-08 2022-03-08 Telephone [facility] 1.2.840.114 [id number] Univers 00:00:00 00:00:00 Cristy SCHREIBER 350.1.13.10 i ty of [place] [id number] Ga dical NAL 134 [facility] 2022-03-08 2022-03-08 Orders Doctor EDITH 1.2.840.114 [id number] Univers 00:00:00 00:00:00 Only Unassigned, FARA 350.1.13.10 ity of [place] [facility] 4.2.7.2.686 Simone as [id number] [facility] 00[address] [place] 2022-02-01 2022-02-01 Telephone [facility] 1.2.840.114 [id number] Univers 00:00:00 00:00:00 Cristybola SCHREIBER 350.1.13.10 i ty of [place].2.[place]2.[place] [id number] [facility] 013 [place] 2022-01-30 2022-01-30 Telephone [facility] 1.2.840.114 [id number] Univers 00:00:00 00:00:00 Cristy SCHREIBER 350.1.13.10 i ty of [place].2.[place] [id number] [facility] 134 [facility] 2022-01-29 2022-01-29 Outpatient R [facility] [id number] Univers 11:00:00 11:54:34 CRISTY ity of [facility] 2022-01-29 2022-01-29 Office [facility] 1.2.840.114 [id number] Univers 11:00:00 11:54:34 Visit Cristy SCHREIBER 350.1.13.10 i ty of [place]2.[place] [id number] Ga dicpa NAL 098 [facility] 2022-01-02 2022-01-02 Telephone [facility] 1.2.840.114 [id number] Univers 00:00:00 00:00:00 Cristy SCHREIBER 350.1.13.10 i ty of [place] 4[place].2.[place] [id number] Ga dical NAL 098 [facility] 2021-12-29 2021-12-29 Office [facility] 1.2.840.114 [id number] Univers 13:30:00 14:24:59 Visit Cristy SCHREIBER 350.1.13.10 i ty [facility] 4.2.7.2.[place] [id number] Ga dical NAL [address] [place] [address] 2021-12-29 2021-12-29 Outpatient Noreen CUELLO [facility] [id number] Univers 13:30:00 14:24:59 CRISTY ity of [facility] 2021-12-29 2021-12-29 Orders Doctor SHARMA 1.2.840.114 [id number] Univers 00:00:00 00:00:00 Only Unassigned, FARA 350.1.13.10 ity of [place] [facility] 4.2.7.2.686 Simone as [id number] [facility] 009 Branch 2021-12-06 2021-12-06 Orders Doctor SHARMA 1.2.840.114 [id number] Univers 00:00:00 00:00:00 Only Unassigned, FARA 350.1.13.10 ity of [place] [facility] 4.2.7.2.686 Simone as [id number] [facility] 009 [place] 2021-03-23 2021-03-23 [id number] [facility] 12:00:00 12:00:00 Neelam Dumont [facility] 2020-04-05 2020-04-05 Emergency [facility] 1.2.292.455 [id number] Univers 16:39:22 19:31:00 Lissa Schreiber 350.1.13.10 i ty of [place] 4.2.7.2.686 [facility] [id number] [facility] 084 Branch 2020-04-05 2020-04-05 Orders Doctor SHARMA 1.2.840.114 [id number] Univers 00:00:00 00:00:00 Only Unassigned, FARA 350.1.13.10 ity of [place] [facility] 4.2.7.2.686 Simone as [id number] [facility] 009 Branch 2019-05-19 2019-05-19 Hospital Radiology [facility] 1.2.840.114 [id number] Univers 09:29:45 23:59:00 Encounter Abdoul 350.1.13.10 ity of [place] 4.2.7.2.686 [facility] [id number] [facility] 800 Branch 2019-05-19 2019-05-19 Orders Doctor SHARMA 1.2.840.114 [id number] Univers 00:00:00 00:00:00 Only Unassigned, FARA 350.1.13.10 ity of [place] [facility] 4.2.7.2.686 Simone as [id number] [address] 2016-09-19 2016-09-19 Outpatient [facility] [id number] Memoria 10:00:00 10:00:00 02 natalia Cruz 2016-09-19 2016-09-19 Outpatient [facility] [id number] Memoria 10:00:00 10:00:00 02 natalia Cruz 2016-06-22 2016-06-22 Outpatient [facility] [id number] Memoria 12:30:00 12:30:00 natalia Cruz 2016-06-22 2016-06-22 Outpatient [facility] [id number] Memoria 12:30:00 12:30:00 natalia Cruz Results Test Description Test Time Test Comments Results Result Comments Source POCT URINALYSIS W/O SPECIFIC GRAVITY 2022-08-17 17:24:00 Test Item Value Reference Range Interpretation Comme nts POCT PH U (test code = 3254) n/a 5-8 POCT U LEUK EST (test code = n/a Negative - Negative 3263) POCT U NIT (test code = 3262) n/a Negative - Negative POCT U PROT (test code = 3259) negative Negative - Negative POCT U GLU (test code = 3256) negative Negative - Negative POCT U KETONE (test code = n/a Negative - Negative 3258) POCT U BLD (test code = 3257) n/a Negative - Negative KRYSTEN (test code = KRYSTEN) Per order PVR by bladder scan = 0 ml. Results reported to provider. [facility] URINALYSIS W/O SPECIFIC [id number] 17:24:00 Test Item Value Reference Range Interpretation Comments POCT PH U (test code n/a 5-8 = 3254) POCT U LEUK EST n/a Negative - Negative (test code = 3263) POCT U NIT (test n/a Negative - Negative code = 3262) POCT U PROT (test negative Negative - Negative code = 3259) POCT U GLU (test negative Negative - Negative code = 3256) POCT U KETONE (test n/a Negative - Negative code = 3258) POCT U BLD (test n/a Negative - Negative code = 3257) KRYSTEN (test code = Per order PVR by KRYSTEN) bladder scan = 0 ml. Results reported to provider. [facility]
--- NOTE | 2022-09-28 17:05 | ER ---
Nurse's Notes [facility] Name: Carmen Dykes Age: 82 yrs Sex: Female : 1940 Arrival Date: 09/28/2022 Time: 16:47 Bed 7 Private MD: Diagnosis: Encounter for general adult medical examination without abnormal findings Presentation: 09/28 17:04 Chief complaint: Patient states: she went to her doctor and she was told her O2 level iw was 84%, denies SOB , SpO2 is 100% in triage. Coronavirus screen: At this time, the client does not indicate any symptoms associated with coronavirus-19. Ebola Screen: Patient negative for fever greater than or equal to 101.5 degrees Fahrenheit, and additional compatible Ebola Virus Disease symptoms Patient denies exposure to infectious person. Patient denies travel to an Ebola-affected area in the 21 days before illness onset. No symptoms or risks identified at this time. Initial Sepsis Screen: Does the patient meet any 2 criteria? No. Patient's initial sepsis screen is negative. Does the patient have a suspected source of infection? No. Patient's initial sepsis screen is negative. Risk Assessment: Do you want to hurt yourself or someone else? Patient reports no desire to harm self or others. Onset of symptoms was September 28, 2022. 17:04 Method Of Arrival: Ambulatory iw 17:04 Acuity: LOLY 4 iw Triage Assessment: 17:12 General: Appears in no apparent distress. Respiratory: Onset: The symptoms/episode ll1 began/occurred this morning, the patient has mild shortness of breath. Historical: - Allergies: 17:06 No Known Allergies; iw - Immunization history:: Adult Immunizations up to date. - Social history:: Smoking status: Patient denies any tobacco usage or history of. Screenin:12 [facility] ED Fall Risk Assessment (Adult) Score/Fall Risk Level 0 - 2 = Low Risk ll1 Oriented to surroundings, Maintained a safe environment, Educated pt \T\ family on fall prevention, incl call for assistance when getting out of bed, Hourly rounding (assess needs \T\ fall precautionary measures) done. Abuse screen: Denies threats or abuse. Nutritional screening: No deficits noted. Tuberculosis screening: No symptoms or risk factors identified. Assessment: 17:11 General: Appears in no apparent distress. Behavior is calm, cooperative, appropriate ll1 for age. Pain: Denies pain. Cardiovascular: No deficits noted. Rhythm is regular. Respiratory: Reports oxygenation being low earlier today, although she felt fine Airway is patent Trachea midline Respiratory effort is even, unlabored, Breath sounds are clear bilaterally. Vital Signs: 17:06 BP 146 / 66; Pulse 79; Resp 16; Temp 98.1; Pulse Ox 100% on R/A; iw ED Course: 16:47 Patient arrived in ED. as 17:00 Oren Michel DO is Attending Physician. ms3 17:00 Gricelda Elise, DEMETRIA is Primary Nurse. ll1 17:00 Arm band placed on Patient placed in an exam room, on a stretcher. ll1 17:06 Triage completed. iw 17:12 Patient has correct armband on for positive identification. Bed in low position. Call ll1 light in reach. Client placed on continuous cardiac and pulse oximetry monitoring. NIBP monitoring applied. 17:12 No provider procedures requiring assistance completed. Patient did not have IV access ll1 during this emergency room visit. Administered Medications: No medications were administered Medication: 17:12 VIS not applicable for this client. ll1 Outcome: 17:05 Discharge ordered by . ms3 17:12 Discharged to home ambulatory. ll1 17:12 Condition: stable 17:12 Discharge instructions given to patient, Instructed on discharge instructions, follow up and referral plans. Demonstrated understanding of instructions, follow-up care. 17:13 Patient left the ED. ll1 Signatures: Angie Gutiérrez Irene, RN RN iw Gricelda Elise RN RN ll1 Oren Michel DO DO ms3 Corrections: (The following items were deleted from the chart) 17:10 17:06 Pulse 79bpm; Resp 16bpm; Pulse Ox 100% RA; iw iw
--- NOTE | 2022-09-28 17:13 | EDPHYS ---
Physician Documentation [facility] Name: Carmen Dykes Age: 82 yrs Sex: Female : 1940 Arrival Date: 09/28/2022 Time: 16:47 Bed 7 Private MD: ED Physician Oren Michel HPI: 09/28 17:06 This 82 yrs old Female presents to ER via Unassigned with complaints of Low pulse wy3 oximeter reading. 17:06 82-year-old female with past medical history hypertension, hyperlipidemia [place] [facility] [place] for low oxygen saturation reading while in Dr. Briceño's office. Patient states she then saw a physician in [place] and her oxygen saturation was 84%. Patient then drove back to [place] and contacted her primary care physician while driving who instructed her to come to the emergency department. Patient is without fevers, chills, cough, shortness of breath, nausea, vomiting, chest pain. Patient does not have complaints at this time.. Historical: - Allergies: 17:06 No Known Allergies; iw - Immunization history:: Adult Immunizations up to date. - Social history:: Smoking status: Patient denies any tobacco usage or history of. ROS: 17:06 Constitutional: Negative for fever, and chills. Neck: Negative for injury, pain, and ms3 swelling, Cardiovascular: Negative for chest pain, and palpitations. Respiratory: Negative for shortness of breath, cough, wheezing, and pleuritic chest pain, Abdomen/GI: Negative for abdominal pain, nausea, vomiting, diarrhea, and constipation, MS/Extremity: Negative for injury and deformity, Skin: Negative for injury, rash, and discoloration. 17:06 All other systems are negative. Exam: 17:06 Constitutional: This is a well developed, well nourished patient who is awake, alert, ms3 and in no acute distress. Head/Face: Normocephalic, atraumatic. Neck: Trachea midline, no cervical lymphadenopathy. Supple, full range of motion without nuchal rigidity, or vertebral point tenderness. No Meningismus. Chest/axilla: Normal chest wall appearance and motion. Nontender with no deformity. Cardiovascular: Regular rate and rhythm with a normal S1 and S2. No gallops, murmurs, or rubs. Normal PMI, no JVD. No pulse deficits. Respiratory: Lungs have equal breath sounds bilaterally, clear to auscultation and percussion. No rales, rhonchi or wheezes noted. No increased work of breathing, no retractions or nasal flaring. Abdomen/GI: Soft, non-tender, with normal bowel sounds. No distension or tympany. No guarding or rebound. No evidence of tenderness throughout. Skin: Warm, dry with normal turgor. Normal color with no rashes, no lesions, and no evidence of cellulitis. MS/ Extremity: Pulses equal, no cyanosis. Neurovascular intact. Full, normal range of motion. Psych: Awake, alert, with orientation to person, place and time. Behavior, mood, and affect are within normal limits. Vital Signs: 17:06 BP 146 / 66; Pulse 79; Resp 16; Temp 98.1; Pulse Ox 100% on R/A; iw MDM: 17:05 Patient medically screened. ms3 17:06 Differential diagnosis: Anemia pneumonia, Pulse oximeter reading error. Data reviewed: ms3 vital signs, nurses notes, and as a result, I will discharge patient. Test considered but Not performed: X-ray: Indication for x-ray at this time. Patient's pulse oximeter is 100% on room air. Patient is without fevers, chills.. Counseling: I had a detailed discussion with the patient and/or guardian regarding: the historical points, exam findings, and any diagnostic results supporting the discharge/admit diagnosis, the need for outpatient follow up, to return to the emergency department if symptoms worsen or persist or if there are any questions or concerns that arise at home. Special discussion: I discussed with the patient/guardian in detail that at this point there is no indication for admission to the hospital. It is understood, however, that if the symptoms persist or worsen the patient needs to return immediately for re-evaluation. ED course: Patient without fevers, chills. Heart rate 79, pulse oximeter is 100%, respiratory rate 16. Patient is asymptomatic. Patient to follow-up with her primary care physician in 2 to 3 days as discussed. Patient understands agrees with plan. All questions were answered. Return precautions discussed include worsening symptoms, or any other concerns.. Administered Medications: No medications were administered Disposition Summary: 09/28/22 17:05 Discharge Ordered Location: Home ms3 Condition: Stable ms3 Diagnosis - Encounter for general adult medical examination without abnormal findings ms3 Followup: ms3 - With: Private Physician - When: 2 - 3 days - Reason: Recheck today's complaints Discharge Instructions: - Discharge Summary Sheet ms3 - Preventive Care 65 Years and Older, Female ms3 Forms: - Medication Reconciliation Form ms3 - Thank You Letter ms3 - Antibiotic Education ms3 - Prescription Opioid Use ms3 Signatures: Ema Gu RN RN iw Gricelda Elise RN RN ll1 Oren Michel DO DO ms3
[2022-09-28 17:17] VITALS: BP 146/66; TEMP 98.1; O2SAT 100
== END 2022-09-28 17:13 | disposition home or self-care (01) ==
LOC: ER 16:44
DX: Z71.1 Person with feared health complaint in whom no diagnosis is made (principal)
CPT/HCPCS: 99281

== ENCOUNTER 2025-06-27 10:12 | Emergency (ER) | payer OTHER, MEDICARE ==
[2025-06-27] MEDS ORDERED: NA CHLORIDE 0.9% 1,000 ML ONE (10:35)
[2025-06-27] MEDS ORDERED: PANTOPRAZOLE 40 MG INJ ONE (11:04)
[2025-06-27 11:37] LABS: Absolute Lymphocytes (CBC) 0.6 K/uL (0.7-4.9); Hematocrit 40.9 % (36.0-45.0); Hemoglobin 13.5 g/dL (12.0-15.0); MCH 29.2 pg (27.0-35.0); MCHC 33.1 g/dL (32.0-36.0); MCV 88.3 fL (80-100); MPV 8.7 fL (7.6-11.3); Nucleated RBC Absolute Count 0.0 (0-0); Nucleated Red Blood Cells % 0.2 % (0-0); RBC Red Blood Cell Count 4.63 M/uL (3.86-4.86); White Blood Count 2.50 thou/uL (4.3-10.9)
[2025-06-27 11:47] LABS: PT Prothrombin Time 13.0 SECONDS (10-13.0); Protime INR 1.16
--- NOTE | 2025-06-27 11:47 | RAD REPORT ---
EXAMINATION: ONE VIEW CHEST XR CLINICAL INDICATION: Female, 84 years old.,ABDOMINAL DISTENTION TECHNIQUE: Frontal chest projection is submitted. Examination is limited by patient positioning and t echnique. COMPARISON: No prior exam. FINDINGS: The lungs are well inflated and clear. No pneumothorax or sizable effusion. The heart is normal in s ize. Mediastinal contours are unremarkable. IMPRESSION: No acute intrathoracic abnormalities.
[2025-06-27 11:59] LABS: ALT/SGPT 36 U/L (13-56); Albumin 2.9 g/dL (3.4-5.0); Albumin/Globulin Ratio 0.8 (1.1-1.8); Alkaline Phosphatase 53 U/L (45-117); Anion Gap 9.8 mEq/L (5.0-15.0); BUN Blood Urea Nitrogen 14 mg/dL (7-18); Globulin 3.8 g/dL (2.3-3.5); Glucose Level 69 mg/dL (74-106); Lipase 25 U/L (13-75); NT PRO-BNP 367 pg/mL (<450); Troponin High Sensitivity 7.7 pg/mL (<58.9)
[2025-06-27 12:00] LABS: AST/SGOT 32 U/L (15-37); Bilirubin Indirect, Calculated 0.7 mg/dL (0.2-0.8); Magnesium 2.0 mg/dL (1.6-2.4); Potassium 3.8 mEq/L (3.5-5.1)
[2025-06-27] MEDS ORDERED: PANTOPRAZOLE INJ 80 MG in NA CHLORIDE 0.9% 250 ML IV SCH (12:00)
[2025-06-27 12:54] LABS: Sqamous Epithelial <5 /HPF (None Seen); Urine Culture Reflex Order NOT NEEDED; Urine Microscopic Reflex YN ORDER UMIC; Urine Yeast (Budding) Trace /HPF (None Seen)
--- NOTE | 2025-06-27 13:28 | RAD REPORT ---
EXAMINATION: CT Abdomen Pelvis W Contrast CLINICAL INDICATION: Female, 84 years old. ABD PAIN TECHNIQUE: CT abdomen and pelvis was performed, after the administration of IV contrast, [facility]. Axial, sagittal and coronal reconstructions were obtained. One or more of the following dose reduction techniques were used: Automated exposure control, adjustment of the mA and k V according to patient size, and iterative reconstruction. Unless otherwise specified, incidental findings do not require dedicated imaging follow-up. COMPARISON: No prior exam. FINDINGS: LOWER CHEST: The visualized lung bases are clear. LIVER: Normal in size and contour. Anterior fluid density lesions largest is subcapsular along segmen t 4A measuring 1.5 cm. These suggest small cysts although are not well characterized. No suspicious focal lesion. BILIARY SYSTEM: No suspicious abnormalities. SPLEEN: Normal size. No focal lesion. PANCREAS: No mass, ductal dilation, or nicole-pancreatic fluid. ADRENALS: Normal; no mass. KIDNEYS: Normal size and contour. No hydronephrosis. URINARY BLADDER: Unremarkable. GASTROINTESTINAL TRACT: Nonspecific fluid opacified distal small bowel segments in the right lower qu adrant, with gradual transition to nondistended small bowel. Distal colonic diverticulosis without evidence of acute vasculitis. Trace dependent pelvic fluid. No evidence of free air, bowel obstructio n or abscess. APPENDIX: Normal appendix. LYMPH NODES: No lymphadenopathy. MUSCULOSKELETAL: No acute or suspicious osseous abnormality. ADDITIONAL FINDINGS: None. IMPRESSION: Nonspecific fluid opacified distal small bowel segments without significant dilation or a focal trans ition point. Findings may relate to enteritis or diarrheal state. Other incidental findings including colonic diverticulosis and probable hepatic cysts, not well jocy cterized.
--- NOTE | 2025-06-27 14:31 | ER ---
Nurse's Notes [facility] Name: Carmen Dykes Age: 84 yrs Sex: Female : 1940 Arrival Date: 06/27/2025 Time: 10:12 Bed 8 Private MD: Diagnosis: Diarrhea, unspecified;Other viral enteritis Presentation: 06/27 10:28 Chief complaint: Patient states: diarrhea since Saturday afternoon, every time I eat I iw have diarrhea, I tried to drink water this morning and I had blacktarry stool. Coronavirus screen: At this time, the client does not indicate any symptoms associated with coronavirus-19. Ebola Screen: No symptoms or risks identified at this time. (+) Ebola Screening. Initial Sepsis Screen: Does the patient meet any 2 criteria? No. Patient's initial sepsis screen is negative. Does the patient have a suspected source of infection? No. Patient's initial sepsis screen is negative. Risk Assessment: Do you want to hurt yourself or someone else? Patient reports no desire to harm self or others. Onset of symptoms was June 25, 2025. 10:28 Method Of Arrival: Ambulatory iw 10:28 Acuity: LOLY 3 iw Historical: - Allergies: 10:30 No Known Allergies; iw - PMHx: 10:30 Hypertensive disorder; Hypercholesterolemia; iw - PSHx: 10:30 hysterectomy; iw - Immunization history:: Adult Immunizations not up to date. - Infectious Disease History:: Denies. - Social history:: Smoking status: Patient denies any tobacco usage or history of. Screenin:29 [facility] ED Fall Risk Assessment (Adult) History of falling in the last 3 months, kb4 including since admission No falls in past 3 months (0 pts) Confusion or Disorientation No (0 pts) Intoxicated or Sedated No (0 pts) Impaired Gait No (0 pts) Mobility Assist Device Used No (0 pt) Altered Elimination No (0 pt) Score/Fall Risk Level 0 - 2 = Low Risk. Abuse screen: Denies threats or abuse. Denies injuries from another. Nutritional screening: No deficits noted. Tuberculosis screening: No symptoms or risk factors identified. Assessment: 11:00 Reassessment: Patient and/or family updated on plan of care and expected duration. Pain kb4 level reassessed. Patient is alert, oriented x 3, equal unlabored respirations, skin warm/dry/pink. General: Appears in no apparent distress. comfortable, Behavior is calm, cooperative. Pain: Denies pain. Neuro: Level of Consciousness is awake, alert, obeys commands, Oriented to person, place, time, situation. Cardiovascular: Patient's skin is warm and dry. Respiratory: Airway is patent Respiratory effort is even, unlabored, Respiratory pattern is regular, symmetrical. GI: Abdomen is flat. GI: Parent/caregiver reports the patient having diarrhea, black stools since yesterday. : No signs and/or symptoms were reported regarding the genitourinary system. Derm: Skin is pink, warm \T\ dry. Musculoskeletal: No signs and/or symptoms reported regarding the musculoskeletal system. 12:35 Reassessment: Patient and/or family updated on plan of care and expected duration. Pain kb4 level reassessed. Patient is alert, oriented x 3, equal unlabored respirations, skin warm/dry/pink. using bedside commode for urination. 13:29 Reassessment: Patient and/or family updated on plan of care and expected duration. Pain kb4 level reassessed. Patient is alert, oriented x 3, equal unlabored respirations, skin warm/dry/pink. RESTING IN BED. 15:00 Reassessment: Patient and/or family updated on plan of care and expected duration. Pain kb4 level reassessed. Patient is alert, oriented x 3, equal unlabored respirations, skin warm/dry/pink. 16:12 Reassessment: Patient and/or family updated on plan of care and expected duration. Pain kb4 level reassessed. Patient is alert, oriented x 3, equal unlabored respirations, skin warm/dry/pink. tolerated abx well. Vital Signs: 10:28 BP 131 / 71; Pulse 85; Resp 16; Temp 97.6; Pulse Ox 99% on R/A; Weight 63.5 kg; Height iw 5 ft. 3 in. ; Pain 0/10; 12:35 BP 149 / 68; Pulse 73; Resp 18; Pulse Ox 100% on R/A; kb4 13:30 BP 149 / 69; Pulse 77; Resp 18; Pulse Ox 99% on R/A; kb4 16:11 BP 148 / 64; Pulse 69; Resp 18; Pulse Ox 99% on R/A; kb4 10:28 Body Mass Index 24.80 (63.50 kg, 160.02 cm) iw 10:28 Pain Scale: Adult iw ED Course: 10:15 Patient arrived in ED. im 10:15 Javon Pineda MD is Attending Physician. adriana 10:30 Triage completed. iw 10:33 Belle Maradiaga, RN is Primary Nurse. kb4 11:00 No provider procedures requiring assistance completed. Inserted saline lock: 20 gauge kb4 in right antecubital area, using aseptic technique. Blood collected. Flushed with 10 mL NS. 11:24 Radiology exam delayed due to lab results not completed at this time. IV insertion sm9 attempt and/or patient not having appropriate IV at this time. 11:26 XRAY Chest (1 view) In Process Unspecified. EDMS 11:29 Patient has correct armband on for positive identification. Placed in gown. Bed in low kb4 position. Call light in reach. Side rails up X 1. 11:30 Arm band placed on right wrist. kb4 12:37 CT Abd/Pelvis - IV Contrast Only In Process Unspecified. EDMS 14:29 Casi Smith MD is Referral Physician. adriana 16:15 IV discontinued, intact, bleeding controlled, No redness/swelling at site. Pressure kb4 dressing applied. 16:16 Provided Education on: d/c abx. kb4 Administered Medications: 16:14 Discontinued: pantoprazole8 mg/hr IV at 25 ml/hr continuous; (Standard dilution is 80 kb4 mg in 250 mL NS) 11:21 Drug: NS 0.9% IV 1000 ml IV at 1000 ml once; to be given as a bolus over 60 minutes kb4 Route: IV; Rate: 1000 ml; Site: right antecubital; 16:14 Follow up: Response: No adverse reaction; IV Status: Completed infusion kb4 11:22 Drug: Pantoprazole IVP 80 mg IVP once Route: IVP; Site: right antecubital; kb4 12:30 Follow up: Response: No adverse reaction kb4 12:09 Drug: Pantoprazole IV 8 mg/hr IV at 25 ml/hr continuous; (Standard dilution is 80 mg in jb4 250 mL NS) Route: IV; Rate: 25 ml/hr; Site: right forearm; 14:54 Drug: Ciprofloxacin IVPB 400 mg 200 ml IVPB once over 60 mins Volume: 200 ml; Route: kb4 IVPB; Infused Over: 60 mins; Site: right antecubital; 16:13 Follow up: Response: No adverse reaction kb4 16:14 Follow up: IV Status: Completed infusion kb4 16:13 Drug: metroNIDAZOLE IVPB 500 mg 100 ml IVPB at 200 ml/hr once over 30 mins Volume: 100 kb4 ml; Route: IVPB; Rate: 200 ml/hr; Infused Over: 30 mins; Site: right antecubital; 16:14 Follow up: Response: No adverse reaction; IV Status: Completed infusion kb4 Medication: 11:30 VIS not applicable for this client. kb4 Outcome: 14:30 Discharge ordered by . adriana 16:15 Discharged to home ambulatory, [facility] 16:15 Condition: stable 16:15 Discharge instructions given to patient, Instructed on discharge instructions, follow up and referral plans. medication usage, Demonstrated understanding of instructions, follow-up care, medications, Prescriptions given X 3, 16:16 Patient left the ED. kb4 Signatures: Dispatcher [employer] EDJavon Jackman MD MD cha Williams, Irene, RN Wyatt Silva RN RN jb4 Sheryl Eddy Sarah [facility] Belle Maradiaga, RN RN kb4
--- NOTE | 2025-06-27 14:31 | EDPHYS ---
Physician Documentation [facility] Name: Carmen Dykes Age: 84 yrs Sex: Female : 1940 Arrival Date: 06/27/2025 Time: 10:12 Bed 8 Private MD: ED Physician Javon Pineda HPI: 06/27 14:23 This 84 yrs old Female presents to ER via Ambulatory with complaints of adriana Diarrhea, GI Bleeding. 14:23 The patient presents to the emergency department with diarrhea, that is continuous. adriana Onset: The symptoms/episode began/occurred 3 day(s) ago. Possible causes: unknown. The symptoms are aggravated by nothing. The symptoms are alleviated by nothing. Associated signs and symptoms: The patient has no apparent associated signs or symptoms. Severity of symptoms: At their worst the symptoms were moderate in the emergency department the symptoms have improved. The patient has experienced similar episodes in the past, a few times. Historical: - Allergies: 10:30 No Known Allergies; iw - PMHx: 10:30 Hypertensive disorder; Hypercholesterolemia; iw - PSHx: 10:30 hysterectomy; iw - Immunization history:: Adult Immunizations not up to date. - Infectious Disease History:: Denies. - Social history:: Smoking status: Patient denies any tobacco usage or history of. ROS: 14:24 Constitutional: Negative for fever, chills, and weight loss, Eyes: Negative for injury, adriana pain, redness, and discharge, ENT: Negative for injury, pain, and discharge, Neck: Negative for injury, pain, and swelling, Cardiovascular: Negative for chest pain, palpitations, and edema, Respiratory: Negative for shortness of breath, cough, wheezing, and pleuritic chest pain, Back: Negative for injury and pain, : Negative for injury, bleeding, discharge, and swelling, MS/Extremity: Negative for injury and deformity, Skin: Negative for injury, rash, and discoloration, Neuro: Negative for headache, weakness, numbness, tingling, and seizure, Psych: Negative for depression, anxiety, suicide ideation, homicidal ideation, and hallucinations, Allergy/Immunology: Negative for hives, rash, and allergies, Endocrine: Negative for neck swelling, polydipsia, polyuria, polyphagia, and marked weight changes, Hematologic/Lymphatic: Negative for swollen nodes, abnormal bleeding, and unusual bruising, 14:24 Abdomen/GI: Positive for abdominal pain, diarrhea, Exam: 14:24 Constitutional: This is a well developed, well nourished patient who is awake, alert, adriana and in no acute distress. Head/Face: Normocephalic, atraumatic. Eyes: Pupils equal round and reactive to light, extra-ocular motions intact. Lids and lashes normal. Conjunctiva and sclera are non-icteric and not injected. Cornea within normal limits. Periorbital areas with no swelling, redness, or edema. ENT: Nares patent. No nasal discharge, no septal abnormalities noted. Tympanic membranes are normal and external auditory canals are clear. Oropharynx with no redness, swelling, or masses, exudates, or evidence of obstruction, uvula midline. Mucous membranes moist. Neck: Trachea midline, no thyromegaly or masses palpated, and no cervical lymphadenopathy. Supple, full range of motion without nuchal rigidity, or vertebral point tenderness. No Meningismus. Chest/axilla: Normal chest wall appearance and motion. Nontender with no deformity. No lesions are appreciated. Cardiovascular: Regular rate and rhythm with a normal S1 and S2. No gallops, murmurs, or rubs. Normal PMI, no JVD. No pulse deficits. Respiratory: Lungs have equal breath sounds bilaterally, clear to auscultation and percussion. No rales, rhonchi or wheezes noted. No increased work of breathing, no retractions or nasal flaring. Abdomen/GI: Soft, non-tender, with normal bowel sounds. No distension or tympany. No guarding or rebound. No evidence of tenderness throughout. Back: No spinal tenderness. No costovertebral tenderness. Full range of motion. Female : Normal external genitalia. Skin: Warm, dry with normal turgor. Normal color with no rashes, no lesions, and no evidence of cellulitis. MS/ Extremity: Pulses equal, no cyanosis. Neurovascular intact. Full, normal range of motion., bilateral aka Neuro: Awake and alert, GCS 15, oriented to person, place, time, and situation. Cranial nerves II-XII grossly intact. Motor strength 5/5 in all extremities. Sensory grossly intact. Cerebellar exam normal. Normal gait. Psych: Awake, alert, with orientation to person, place and time. Behavior, mood, and affect are within normal limits. 14:24 ECG was reviewed by the Attending Physician. 14:24 Abdomen/GI: Inspection: abdomen appears normal, Bowel sounds: normal, Palpation: abdomen is soft and non-tender, Rectal exam: Stool: normal, hemorrhoid(s), are not appreciated, mass, is not appreciated, swelling, is not appreciated, tenderness, is not appreciated, fecal impaction, is not appreciated, none, Liver: no appreciated palpable abnormalities, Hernia: not appreciated, 14:24 Musculoskeletal/extremity: ROM: no acute changes, Circulation is intact in all extremities. Sensation intact. Compartment Syndrome exam of affected extremity: is normal. Weight bearing: able to fully bear weight, Vital Signs: 10:28 BP 131 / 71; Pulse 85; Resp 16; Temp 97.6; Pulse Ox 99% on R/A; Weight 63.5 kg; Height iw 5 ft. 3 in. ; Pain 0/10; 12:35 BP 149 / 68; Pulse 73; Resp 18; Pulse Ox 100% on R/A; kb4 13:30 BP 149 / 69; Pulse 77; Resp 18; Pulse Ox 99% on R/A; kb4 16:11 BP 148 / 64; Pulse 69; Resp 18; Pulse Ox 99% on R/A; kb4 10:28 Body Mass Index 24.80 (63.50 kg, 160.02 cm) iw 10:28 Pain Scale: Adult iw MDM: 10:15 Medical Screening Exam initiated adriana 14:27 Differential diagnosis: Nonspecific abd pain, gastritis, cholecystitis, pancreatitis, adriana appendicitis, diverticulitis, viral gastroenteritis, gastroenteritis, cholecystitis, Cholelithiasis, diverticulitis, gastritis, gastroesophageal reflux disease, GI Bleed, Hepatitis, Irritable bowel syndrome, non-specific abd pain, pancreatitis, Peptic Ulcer Disease, Peritonitis, Pyelonephritis, Ureterolithiasis, urinary tract infection. Data reviewed: vital signs, nurses notes, lab test result(s), EKG, radiologic studies. Consideration of Admission/Observation Escalation of care including admission/observation considered. I considered the following discharge prescriptions or medication management in the emergency department Medications were administered in the Emergency Department. See MAR. Independent interpretation of the following test(s) in the Emergency Department EKG: See my EKG interpretation above. Test considered but Not performed: Ultrasound no abd usg. 10/19 10:17 Order name: Basic Metabolic Panel; Complete Time: 13:50 06/27 10:17 Order name: CBC with Diff; Complete Time: 11:55 06/27 10:17 Order name: LFT's; Complete Time: 13:50 06/27 10:17 Order name: Magnesium; Complete Time: 13:50 06/27 10:17 Order name: NT PRO-BNP; Complete Time: 13:50 06/27 10:17 Order name: PT-INR; Complete Time: 11:55 06/27 10:17 Order name: Troponin HS; Complete Time: 13:50 06/27 10:17 Order name: Lipase; Complete Time: 13:50 06/27 10:17 Order name: UA Rfx Marin Cult if indicated; Complete Time: 13:50 [facility] 06/27 10:38 Order name: Type And Screen; Complete Time: 13:50 06/27 10:17 Order name: XRAY Chest (1 view); Complete Time: 11:55 06/27 10:17 Order name: CT Abd/Pelvis - IV Contrast Only; Complete Time: 13:50 06/27 10:17 Order name: Cardiac monitoring; Complete Time: 10:49 06/27 10:17 Order name: EKG - Nurse/Tech; Complete Time: 11:22 06/27 10:17 Order name: IV Saline Lock; Complete Time: 11:22 06/27 10:17 Order name: Labs collected and sent; Complete Time: 11:22 06/27 10:17 Order name: O2 Per Protocol; Complete Time: 10:49 06/27 10:17 Order name: O2 Sat Monitoring; Complete Time: 10:49 [facility] 06/27 10:38 Order name: IV Saline Lock - Large Bore; Complete Time: 11:25 06/27 14:23 Order name: PO challenge: juice; Complete Time: 15:56 [facility] EC:24 Rate is 75 beats/min. Rhythm is regular. QRS [place] is Normal. GA interval is normal. QRS adriana interval is normal. QT interval is normal. No Q waves. T waves are Normal. No ST changes noted. Clinical impression: NSR w/ Non-specific ST/T Changes and No evidence of ischemia. Interpreted by me. Reviewed by me. Administered Medications: 16:14 Discontinued: pantoprazole8 mg/hr IV at 25 ml/hr continuous; (Standard dilution is 80 kb4 mg in 250 mL NS) 11:21 Drug: NS 0.9% IV 1000 ml IV at 1000 ml once; to be given as a bolus over 60 minutes kb4 Route: IV; Rate: 1000 ml; Site: right antecubital; 16:14 Follow up: Response: No adverse reaction; IV Status: Completed infusion kb4 11:22 Drug: Pantoprazole IVP 80 mg IVP once Route: IVP; Site: right antecubital; kb4 12:30 Follow up: Response: No adverse reaction kb4 12:09 Drug: Pantoprazole IV 8 mg/hr IV at 25 ml/hr continuous; (Standard dilution is 80 mg in jb4 250 mL NS) Route: IV; Rate: 25 ml/hr; Site: right forearm; 14:54 Drug: Ciprofloxacin IVPB 400 mg 200 ml IVPB once over 60 mins Volume: 200 ml; Route: kb4 IVPB; Infused Over: 60 mins; Site: right antecubital; 16:13 Follow up: Response: No adverse reaction kb4 16:14 Follow up: IV Status: Completed infusion kb4 16:13 Drug: metroNIDAZOLE IVPB 500 mg 100 ml IVPB at 200 ml/hr once over 30 mins Volume: 100 kb4 ml; Route: IVPB; Rate: 200 ml/hr; Infused Over: 30 mins; Site: right antecubital; 16:14 Follow up: Response: No adverse reaction; IV Status: Completed infusion kb4 Disposition Summary: 06/27/25 14:30 Discharge Ordered Notes: Location: Home adriana Problem: new adriana Symptoms: have improved adriana Condition: Stable adriana Diagnosis - Diarrhea, unspecified adriana - Other viral enteritis adriana Followup: adriana - With: Private Physician - When: 2 - 3 days - Reason: Recheck today's complaints, Continuance of care, Re-evaluation by your physician Followup: adriana - With: Casi Smith MD - When: 2 - 3 days - Reason: Recheck today's complaints, Re-evaluation by your physician Discharge Instructions: - Discharge Summary Sheet adriana - Food Choices to Help Relieve Diarrhea, Adult adriana - Diarrhea, Adult adriana - Diarrhea, Adult, [id number] adriana Forms: - Medication Reconciliation Form adriana - Antibiotic Education adriana - Prescription Opioid Use adriana - Patient Portal Instructions adriana - Leadership Thank You Letter adriana Prescriptions: - Cipro 250 mg Oral tablet - take 1 tablet ORAL route every 12 hours; 14 tablet; Refills: 0, Product [facility] Selection Permitted - Flagyl 500 mg Oral tablet - take 1 tablet ORAL route every 8 hours for 7 days; 21 tablet; Refills: 0, [facility] Product Selection Permitted - Protonix 40 mg Oral Tablet - take 1 tablet ORAL route once daily; 30 tablet; Refills: 0, Product Selection [facility] Permitted Signatures: Dispatcher [employer] EDMS Javon Pineda MD MD cha Williams, Irene RN RN Wyatt Harrell RN RN jb4 Belle Maradiaga RN RN kb4 Corrections: (The following items were deleted from the chart) 10:18 10:18 Chest Single View+RAD.RAD.BRZ ordered. EDMS EDMS 10:18 10:18 Abdomen Pelvis W Con+CT.RAD.BRZ ordered. EDMS EDMS
[2025-06-27] MEDS ORDERED: CIPROFLOXACIN 400mg IV 400 MG/200 ML BAG IV ONE (14:35)
[2025-06-27] MEDS ORDERED: METRONIDAZOLE 500mg IVPB 500 MG/100 ML BAG IV ONE (14:35)
[2025-06-27 19:30] VITALS: TEMP 97.6
[2025-06-27 19:51] VITALS: O2SAT 99
[2025-06-27 19:52] VITALS: BP 148/64
== END 2025-06-27 16:16 | disposition home or self-care (01) ==
LOC: ER 10:12
DX: A08.39 Other viral enteritis (principal)
CPT/HCPCS: 93005; 85025; 81001; 80048; 36415; 86900; 83735; 86850; 85610; 86901; 80076; 84484; 83690; 83880; 74177; 71045; 99284; Q9967; J2470 ×2; J0744; J7050; J7030